=== PATIENT | male | born 1985 | race Hispanic/Latino ===

== ENCOUNTER 2017-07-26 23:46 | Emergency (ER) | payer BC ==
[2017-07-26 23:54] VITALS: BP 130/80; PULSE 81; RESP 20; TEMP 98.9; O2SAT 100
[2017-07-27] MEDS ORDERED: Lidocaine Hydrochloride 5 ML INJ ONE (00:19)
--- NOTE | 2017-07-27 00:44 | C.PDOC ---
History Of Present Illness 31 year old male presents to the ER stating he was playing soccer when someone elbowed him on the upper lip causing him to sustain a laceration ENTRY LEVEL [place]. Denies LOC or other injuries. Time Seen by Provider: 07/27/17 00:00 Chief Complaint (Nursing): ENT Problem History Per: Patient History/Exam Limitations: None Onset/Duration Of Symptoms: Hrs Current Symptoms Are (Timing): Still Present Quality (Mouth/Throat): Other (Laceration) Past Medical History Reviewed: Historical Data, Nursing Documentation, Vital Signs Vital Signs: Last Vital Signs Temp 98.9 F 07/26/17 23:51 Pulse 81 07/26/17 23:51 Resp 20 07/26/17 23:51 BP 130/80 07/26/17 23:51 Pulse Ox 100 07/27/17 01:18 Surgical History: Tonsillectomy Family History: States: Unknown Family Hx - Social History Hx Alcohol Use: No Hx Substance Use: No - Immunization History Hx Tetanus Toxoid Vaccination: No Hx Influenza Vaccination: No Hx Pneumococcal Vaccination: No Review Of Systems ENT: Positive for: Mouth Pain Skin: Positive for: Other (Laceration) Neurological: Negative for: Headache, Other (LOC) Physical Exam - Physical Exam Appears: Non-toxic Skin: Warm, Dry Head: Atraumatic, Normacephalic Eye(s): bilateral: Normal Inspection Oral Mucosa: Moist Tongue: Normal Appearing, No Bite, No Laceration Lips: Laceration (1.5cm stellate to buccal aspect of right upper lip, no vermillon border involvement) Teeth: Normal Dentition Gingiva: Normal Appearing, No Bleeding Neck: Normal, No Midline Cervical Tenderness, No Paracervical Tenderness, Supple Neurological/Psych: Oriented x3, Normal Speech ED Course And Treatment O2 Sat by Pulse Oximetry: 100 (Room air) Pulse Ox Interpretation: Normal Progress Note: Patient tolerated laceration repair without any difficulty or pain. Patient given proper wound care instructions and advised to follow up with PMD for wound check. Laceration - Laceration Repair Right upper lip Wound Length (In cm): 1.5 Description Of Wound: Stellate Wound Cleansed With: Sterile Saline Anesthesia: Lidocaine 1% Wound Examination: Irrigated With Saline Wound Closure: Suture (6) Suture Technique And Material Used: Interrupted, Nylon (5-0) Wound Complexity: Intermediate Disposition Counseled Patient/Family Regarding: Diagnosis, Need For Followup - Disposition Referrals: 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 - Scribe Statement The provider has reviewed the documentation as recorded by the Scribmaureen Will All medical record entries made by the Ripibmaureen were at my direction and personally dictated by me. I have reviewed the chart and agree that the record accurately reflects my personal performance of the history, physical exam, medical decision making, and the department course for this patient. I have also personally directed, reviewed, and agree with the discharge instructions and disposition.
== END 2017-07-27 00:47 | disposition home or self-care (01) ==
LOC: C.ER 23:46
DX: S01.511A Laceration without foreign body of lip, initial encounter (principal); W50.0XXA Accidental hit or strike by another person, initial encounter; Y93.66 Activity, soccer